=== PATIENT | female | born 1960 | race Caucasian/White ===

== ENCOUNTER 2020-08-09 12:10 | Emergency (ER) | payer OTHER ==
[2020-08-09 12:25] VITALS: BP 108/78; PULSE 74; TEMP 97.8; BMI 24.0
[2020-08-09] MEDS ORDERED: IBUPROFEN 400 MG TABLET (FP) PO ONE (12:27)
[2020-08-09] MEDS ORDERED: ACETAMINOPHEN 325 MG TABLET (FP) PO ONE (12:28)
[2020-08-09] MEDS ORDERED: ACETAMINOPHEN 325 MG TABLET (FP) ONE (12:36)
== END 2020-08-09 12:55 | disposition home or self-care (01) ==
LOC: FER 12:10
DX: R07.81 Pleurodynia (principal)
CPT/HCPCS: 99284-25